=== PATIENT | male | born 1995 | race Caucasian/White ===

== ENCOUNTER 2024-11-16 12:07 | Emergency (ER) | payer SELFPAY ==
[2024-11-16 12:15] VITALS: BP 146/78; PULSE 88; RESP 18; TEMP 36.8; O2SAT 97; BMI 43.1
--- NOTE | 2024-11-16 12:22 | ED_ITS ---
<Statement entered by Kellee Galeano DO - 11/16/24 13:50> I was consulted by the ALMAZ, and we discussed the complexity of the problems being addressed. I approved the treatment and management plan for this patient's care in the emergency department, thus performing a substantive portion of the medical decision making. Kellee Galeano DO Discharge Plan Disposition Patient Disposition: Home, Self-Care Condition: Fair Referrals Follow up/Referrals: Brian Daley DO [Staff Physician, Family Practice] - See instructions Provider,Referral, MD [Primary Care Provider, Medical] - See instructions Activity Restrictions/Add. Instructions Additional Instructions/Restrictions: Today you were evaluated in the emergency department, your blood pressure during today's visit is 146/78, since you have no symptoms this is considered to be asymptomatic elevated blood pressure. Please call the number below to establish with PCP as we cannot get medical clearance from an emergency department. Return to the ED for worsening of condition. Clinical Impressions Clinical Impression: Elevated blood pressure reading Print Language Print Language: Korean Discharge ED Provider: Kellee Galeano General Adult HPI General Chief complaint: Medical Clearance Stated complaint: high b/p Time Seen by Provider: 11/16/24 12:24 Mode of Arrival: Ambulatory Source of Information: Patient Description of Symptoms (Recalled from ER Triage Doc. by RN): PT present to the ED for medical clearance for work r/t HTN. PT went for a physical r/t job hire. In office BP was 142/86. PT stated he was advised to come tot he ER for medical clearance to begin work. Triage BP 146/78 right upper arm. PT denies hx of HTN. PT denies blood thinners. History of Present Illness HPI narrative: patient is a 29-year-old male with no significant PMHx who presents to the ED requesting medical clearance for [employer]. Patient states he was being evaluated for employment at [employer] when his blood pressure was 140 systolic, patient was advised to follow-up with PCP for further evaluation, per the form that he brought in, however he states he does not have a PCP. [facility] Disclaimer: The information contained in this section may have been updated after the patient was seen, as this information can be updated by other users. Social History Smoking Status: Current every day smoker alcohol intake: never current occupational status: unemployed Travel in the last 8 weeks?: None ROS Obtained: Yes Systems reviewed as appropriate & no additional complaints except as documented Physical Exam General General appearance: alert and in no apparent distress Head Head exam: atraumatic Eye Eye exam: Present EOMI; Absent scleral icterus Neck Neck exam: Present full ROM Chest Chest inspection: Present symmetric chest wall rise Respiratory Respiratory exam: Absent respiratory distress Cardiovascular Cardiovascular exam: Present regular rate Neurological Exam Neurological exam: Present alert, oriented X3 and normal gait Medical Decision Making Medical Records Screening: Per USPSTF and CDC recommendations, given the prevalence of disease in our region, it is our hospital?s policy to screen for HIV and viral Hepatitis for all patients aged 18 and over and those with ongoing risk factors. Adithya Inquiry Pt receiving controlled substance: No Vital Signs: 11/16/24 12:15 11/16/24 12:54 Temperature 98.2 F 98.2 F Temperature Source Oral Pulse Rate 88 Pulse Rate [Right] 88 Respiratory Rate 18 18 Blood Pressure 146/78 H Blood Pressure [Right Arm] 146/78 H Blood Pressure Mean [Right Arm] 100 02 Sat by Pulse Oximetry 97 Oxygen Delivery Method Room Air Medical Decision Narrative: In summary, patient is a 29-year-old male with no significant PMHx who presents to the ED requesting medical clearance for [employer]. Patient states he was being evaluated for employment at [employer] when his blood pressure was 140 systolic, patient was advised to follow-up with PCP for further evaluation, per the form that he brought in, however he states he does not have a PCP. He states that he does not have any symptoms, does not check his blood pressure. Denies fever, chills, headache, visual disturbance, posterior neck pain, chest pain, shortness of breath, abdominal pain, dizziness, nausea, vomiting. Upon initial evaluation patient is alert, oriented and cooperative. He is hemodynamically stable. Discussed with patient that I am unable to give medical clearance from an emergency department. Advised him to call PCP that I placed on his discharge papers for further evaluation. Discussed return to the ED for worsening of condition. Critical Care Critical Care Time Critical Care Time: No
[2024-11-16 12:54] VITALS: BP 146/78; PULSE 88; RESP 18; TEMP 36.8; O2SAT 97
== END 2024-11-16 12:54 | disposition home or self-care (01) ==
LOC: ER 12:56
PROVIDERS: Emergency Provider Emergency Medicine
DX: Z00.8 Encounter for other general examination (principal)
CPT/HCPCS: 99281